=== PATIENT | female | born 2000 | race Caucasian/White ===

== ENCOUNTER → 2022-06-18 | Outpatient (CLI) | payer OTHER ==
[2022-06-18 12:14] LABS: HEMATOCRIT 37.1 % (36.0-47.0); HEMOGLOBIN 12.6 g/dl (12.0-15.5); MEAN CORPUSCULAR HEMOGLOBIN 31.3 pg (27.0-33.0); MEAN CORPUSCULAR VOLUME 92.3 fl (80.0-96.0); PLATELET COUNT, AUTOMATED 235 10^3/uL (150-450); RED BLOOD COUNT 4.02 10^6/uL (4.00-5.40); WHITE BLOOD COUNT 10.5 10^3/uL (4.0-10.0)
== END ==
LOC: M LAB 10:26
PROVIDERS: ATTEND Obstetrics & Gynecology
DX: Z34.02 Encounter for supervision of normal first pregnancy, second trimester (principal)

== ENCOUNTER → 2022-08-06 | Outpatient (REF) | payer OTHER | LOC: M LAB REF 12:08 | PROVIDERS: ATTEND Advanced Practice Midwife | DX: Z34.03 Encounter for supervision of normal first pregnancy, third trimester (principal) ==

== ENCOUNTER 2022-08-19 21:05 | Outpatient (CLI) | payer OTHER ==
[2022-08-19 21:25] VITALS: BP 129/78
== END 2022-08-19 22:30 | disposition home or self-care (01) ==
LOC: M LDO 21:05
PROVIDERS: ATTEND Advanced Practice Midwife
DX: O60.03 Preterm labor without delivery, third trimester (principal); O26.893 Other specified pregnancy related conditions, third trimester; R10.2 Pelvic and perineal pain; R25.2 Cramp and spasm; Z3A.36 36 weeks gestation of pregnancy
CPT/HCPCS: 59025; 76815; G0463

== ENCOUNTER → 2022-08-21 | Outpatient (REF) | payer OTHER | LOC: M LAB REF 16:16 | PROVIDERS: ATTEND Obstetrics & Gynecology | DX: Z34.03 Encounter for supervision of normal first pregnancy, third trimester (principal) ==

== ENCOUNTER → 2022-09-02 | Outpatient (CLI) | payer OTHER | LOC: M LABSMTC 11:33 | PROVIDERS: ATTEND Anesthesiology | DX: Z01.812 Encounter for preprocedural laboratory examination (principal); Z11.52 Encounter for screening for COVID-19 ==

== ENCOUNTER 2022-09-05 06:49 | Inpatient (IN) | payer OTHER ==
[~2022-09-05] VITALS: Ht 162.6 cm; Wt 75.1 kg
[2022-09-05] VITALS (9 sets, daily range): BP systolic 118–139; BP diastolic 62–82
[2022-09-05] MEDS ORDERED: LACTATED RINGER'S 1000 ML IV STA (07:04)
[2022-09-05] MEDS ORDERED: LR 1,000 ML IV SCH ×2 (07:05→11:50)
[2022-09-05] MEDS ORDERED: BICITRA 30ML SOLN UDC PO ONE (07:05)
[2022-09-05] MEDS ORDERED: ceFAZolin SOD 2 GM in IV 1 EA IV ONE (07:05)
[2022-09-05] MEDS ORDERED: OXYTOCIN DRIP 30 UNITS in IV 1 EA IV PRN ×4 (07:05)
[2022-09-05 07:49] LABS: HEMATOCRIT 35.6 % (36.0-47.0); HEMOGLOBIN 12.2 g/dl (12.0-15.5); MEAN CORPUSCULAR HEMOGLOBIN 30.9 pg (27.0-33.0); MEAN CORPUSCULAR HGB CONC 34.3 g/dl (32.0-36.5); MEAN CORPUSCULAR VOLUME 90.1 fl (80.0-96.0); PLATELET COUNT, AUTOMATED 228 10^3/uL (150-450); RED BLOOD COUNT 3.95 10^6/uL (4.00-5.40); WHITE BLOOD COUNT 11.7 10^3/uL (4.0-10.0)
[2022-09-05] MEDS ORDERED: KETOROLAC 60MG 2ML VIAL As Ordered ONE (08:36)
[2022-09-05] MEDS ORDERED: MORPHINE PRES-FREE INJ 10 MG/10 ML VIAL As Ordered ONE (08:36)
[2022-09-05] MEDS ORDERED: OXYTOCIN INJ 10 UNITS/ML VIAL (J2590) As Ordered ONE (08:46)
[2022-09-05] MEDS: PRENATAL VITAMINS CHEWABLE TABLET PO SCH (09:00)
[2022-09-05] MEDS ORDERED: MOM 30ML SUSPENSION UDC PO PRN (10:30)
[2022-09-05] MEDS ORDERED: RHOGAM 300 MCG (1500 IU) INJ (J2790) IM SCH (10:30)
[2022-09-05] MEDS ORDERED: ONDANSETRON 4MG 2ML VIAL As Ordered ONE (10:54)
[2022-09-05] MEDS ORDERED: dexameTHASONE 4 MG/ML 1ML VIAL (J1100 PER 1MG) As Ordered ONE (10:54)
[2022-09-05] MEDS ORDERED: PHENYLephrine 500MCG 5ML (100MCG/ML) SYRINGE As Ordered ONE (11:02)
[2022-09-05 11:09] LABS: CORD GAS ABE V -2.5; CORD GAS HCO3 V 22.7 MEQ/L; CORD GAS O2 SAT V 71.5 %; CORD GAS PCO2 V 40.6 mmHg; CORD GAS PH V 7.365 UNITS; CORD GAS PO2 V 30.3 mmHg; CORD GAS SBC V 21.8 MEQ/L; CORD GAS TCO2 V 23.9 MEQ/L
[2022-09-05 11:10] LABS: CORD GAS ABE A -1.1; CORD GAS HCO3 A 26.2 MEQ/L; CORD GAS O2 SAT A 36.1 %; CORD GAS PCO2 A 53.7 mmHg; CORD GAS PH A 7.306 UNITS; CORD GAS PO2 A 16.7 mmHg; CORD GAS SBC A 22.1 MEQ/L; CORD GAS TCO2 A 27.8 MEQ/L
[2022-09-05] MEDS ORDERED: ACETAMINOPHEN 1000MG 100ML IV BAG As Ordered ONE (11:10)
[2022-09-05] MEDS ORDERED: ONDANSETRON 4MG 2ML VIAL IV PRN (11:50)
[2022-09-05] MEDS ORDERED: fentaNYL 100 MCG/2 ML INJECTION IV PRN (11:50)
[2022-09-05] MEDS ORDERED: **NOTE PATIENT COMMENT** MISC XX SCH ×2 (11:50)
[2022-09-05] MEDS ORDERED: METOCLOPRAMIDE INJ 10MG/2ML VIAL (J2765 PER 1) IV PRN ×2 (11:50)
[2022-09-05] MEDS ORDERED: SLF 3 ML SYR IV SCH ×2 (11:50)
[2022-09-05] MEDS ORDERED: NALOXONE INJ 0.4MG/1ML VIAL (J2310 PER 1MG) IV PRN ×4 (11:50)
[2022-09-05] MEDS ORDERED: diphenhydrAMINE 50MG/ML VIAL IV PRN (11:50)
[2022-09-05] MEDS ORDERED: OXYTOCIN 30 UNITS IN 0.9% NaCl 500ML IV BAG (J2590) As Ordered ONE (12:08)
[2022-09-05] MEDS ORDERED: diphenhydrAMINE 50MG/ML VIAL As Ordered ONE (12:09)
[2022-09-05] MEDS ORDERED: OXYTOCIN DRIP 30 UNITS in IV 1 EA IV ONE (12:10)
[2022-09-05] MEDS: diphenhydrAMINE 50MG/ML VIAL IV PRN ×2 (12:11→16:30)
[2022-09-05] MEDS: KETOROLAC 30 MG/ML 1ML VIAL IV SCH ×2 (16:56→22:32)
[2022-09-05] MEDS: SLF 3 ML SYR IV SCH (19:50)
[2022-09-05] MEDS: DOCUSATE SODIUM 100MG CAPSULE PO SCH (20:00)
[2022-09-06 01:57] VITALS: BP 115/58
[2022-09-06] MEDS: SLF 3 ML SYR IV SCH ×2 (05:15→11:50)
[2022-09-06] MEDS: KETOROLAC 30 MG/ML 1ML VIAL IV SCH (05:15)
[2022-09-06 06:00] VITALS: BP 118/75
[2022-09-06 07:33] LABS: HEMATOCRIT 31.4 % (36.0-47.0); HEMOGLOBIN 10.6 g/dl (12.0-15.5); MEAN CORPUSCULAR HEMOGLOBIN 31.3 pg (27.0-33.0); MEAN CORPUSCULAR HGB CONC 33.8 g/dl (32.0-36.5); MEAN CORPUSCULAR VOLUME 92.6 fl (80.0-96.0); PLATELET COUNT, AUTOMATED 229 10^3/uL (150-450); RED BLOOD COUNT 3.39 10^6/uL (4.00-5.40); WHITE BLOOD COUNT 18.5 10^3/uL (4.0-10.0)
[2022-09-06] MEDS: PRENATAL VITAMINS CHEWABLE TABLET PO SCH (08:58)
[2022-09-06] MEDS: DOCUSATE SODIUM 100MG CAPSULE PO SCH ×2 (08:58→20:22)
[2022-09-06 10:00] VITALS: BP 120/66
[2022-09-06] MEDS: SIMETHICONE 80MG CHEW TAB PO PRN ×2 (10:12→17:23)
[2022-09-06] MEDS: PERCOCET 5MG/325MG TAB PO PRN ×2 (10:13→17:24)
[2022-09-06] MEDS: IBUPROFEN 800 MG TAB PO SCH ×2 (12:46→20:23)
[2022-09-06 14:00] VITALS: BP 107/53
[2022-09-06 18:00] VITALS: BP 126/87
[2022-09-06 22:05] VITALS: BP 117/71
[2022-09-07] MEDS: SIMETHICONE 80MG CHEW TAB PO PRN ×3 (01:07→12:18)
[2022-09-07] MEDS: PERCOCET 5MG/325MG TAB PO PRN ×3 (01:07→10:30)
[2022-09-07 02:00] VITALS: BP 128/82
[2022-09-07] MEDS: IBUPROFEN 800 MG TAB PO SCH ×2 (05:09→12:18)
[2022-09-07 06:00] VITALS: BP 130/76
[2022-09-07] MEDS: DOCUSATE SODIUM 100MG CAPSULE PO SCH (08:06)
[2022-09-07] MEDS: PRENATAL VITAMINS CHEWABLE TABLET PO SCH (08:06)
[2022-09-07] MEDS ORDERED: MEASLES,MUMPS,RUBELLA VACCINE INJ (MMR-II) (90707) SC.IMMUN ONE (09:00)
[2022-09-07] MEDS ORDERED: SIME180C25 PO ×2 (11:35→14:29)
[2022-09-07] MEDS ORDERED: OXYC1TAB23 PO ×2 (12:03→14:28)
== END 2022-09-07 13:36 | disposition home or self-care (01) | DRG 773 ==
LOC: M LDI 06:49 → M OBS 12:47
PROVIDERS: ADMIT Obstetrics & Gynecology; ATTEND Obstetrics & Gynecology
PROC: 10D00Z1 Extraction of Products of Conception, Low, Open Approach (ICD-10-PCS; principal; 2022-09-05 09:30)
DX: O80 Encounter for full-term uncomplicated delivery (principal); Z3A.38 38 weeks gestation of pregnancy; Z37.0 Single live birth

== ENCOUNTER → 2023-02-25 | Outpatient (REF) ==
[~2023-02-25] MED LIST: OXYC1TAB23 PO; SIME180C25 PO
== END ==
LOC: M EMP 10:57
PROVIDERS: ATTEND Family Medicine
DX: Z20.822 Contact with and (suspected) exposure to COVID-19 (principal)

== ENCOUNTER → 2024-06-17 | Outpatient (CLI) | payer OTHER ==
[2024-06-17 11:42] LABS: HEMATOCRIT 35.9 % (36.0-47.0); MEAN CORPUSCULAR HGB CONC 33.4 g/dl (32.0-36.5); MEAN CORPUSCULAR VOLUME 92.8 fl (80.0-96.0); PLATELET COUNT, AUTOMATED 240 10^3/uL (150-450); RED BLOOD COUNT 3.87 10^6/uL (4.00-5.40); WHITE BLOOD COUNT 10.4 10^3/uL (4.0-10.0)
== END ==
LOC: M LAB 09:46
PROVIDERS: ATTEND Obstetrics & Gynecology
DX: Z34.82 Encounter for supervision of other normal pregnancy, second trimester (principal)

== ENCOUNTER → 2024-08-03 | Outpatient (REF) | payer OTHER ==
[~2024-08-03] MED LIST changes: +ONDA-83 PO; -SIME180C25 PO; +SIME1CAP4 PO
== END ==
LOC: M LAB REF 13:07
PROVIDERS: ATTEND Obstetrics & Gynecology
DX: Z34.83 Encounter for supervision of other normal pregnancy, third trimester (principal); Z3A.00 Weeks of gestation of pregnancy not specified

== ENCOUNTER 2024-08-11 00:34 | Outpatient (CLI) | payer OTHER ==
[~2024-08-11] VITALS: Ht 162.6 cm; Wt 74.2 kg
[2024-08-11 00:47] VITALS: BP 125/74
[2024-08-11] MEDS ORDERED: PRENTAB9 PO (00:49)
[2024-08-11] MEDS ORDERED: IRON27TA2 PO (00:49)
[2024-08-11] MEDS ORDERED: HOME MED LIST COMPLETE! XX SCH (00:50)
[2024-08-11 04:14] LABS: HEMATOCRIT 32.6 % (36.0-47.0); HEMOGLOBIN 11.1 g/dl (12.0-15.5); MEAN CORPUSCULAR HEMOGLOBIN 31.2 pg (27.0-33.0); MEAN CORPUSCULAR VOLUME 91.6 fl (80.0-96.0); PLATELET COUNT, AUTOMATED 204 10^3/uL (150-450); RED BLOOD COUNT 3.56 10^6/uL (4.00-5.40); WHITE BLOOD COUNT 11.5 10^3/uL (4.0-10.0)
[2024-08-11 04:26] LABS: INR 1.02; PARTIAL THROMBOPLASTIN TIME 29.6 SECONDS (24.8-34.2); PROTHROMBIN TIME 13.1 SECONDS (12.5-14.5)
== END 2024-08-11 05:11 | disposition home or self-care (01) ==
LOC: M LDO 00:34
PROVIDERS: ATTEND Obstetrics & Gynecology
DX: O47.1 False labor at or after 37 completed weeks of gestation (principal); Z3A.37 37 weeks gestation of pregnancy
CPT/HCPCS: 36415; 59025; 85027; 85384; 85610; 85730; 86850; 86900; 86901; G0463

== ENCOUNTER 2024-08-27 13:10 | Emergency (ER) | payer OTHER ==
[~2024-08-27] VITALS: Ht 162.6 cm; Wt 69.4 kg
[~2024-08-27 13:10] MED LIST changes: +COLA100C5 PO; +FLUC10TA PO; +IBUP80TA PO; +IRON27TA2 PO; +PRENTAB9 PO
[2024-08-27] MEDS ORDERED: ACET-907 PO (13:21)
[2024-08-27 14:02] LABS: BASO # 0.1 10^3/uL (0.0-0.2); BASO % 0.5 % (0.0-1.0); EOS # 0.2 10^3/uL (0.0-0.5); EOS % 1.7 % (0.0-3.0); HEMATOCRIT 39.4 % (36.0-47.0); LYMPH # 1.3 10^3/uL (1.5-5.0); LYMPH % 10.3 % (24.0-44.0); MEAN CORPUSCULAR HEMOGLOBIN 29.9 pg (27.0-33.0); MEAN CORPUSCULAR VOLUME 90.6 fl (80.0-96.0); MONO # 0.6 10^3/uL (0.0-0.8); NEUTROPHILS # 9.9 10^3/uL (1.5-8.5); NEUTROPHILS % 81.9 % (36.0-66.0); PLATELET COUNT, AUTOMATED 421 10^3/uL (150-450); RED BLOOD COUNT 4.35 10^6/uL (4.00-5.40); WHITE BLOOD COUNT 12.1 10^3/uL (4.0-10.0)
[2024-08-27 14:30] LABS: ALBUMIN 3.5 G/DL (3.2-5.2); ALKALINE PHOSPHATASE 111 U/L (35-104); ALT/SGPT 18 U/L (7.0-40); AST/SGOT 9 U/L (<34); BILIRUBIN,TOTAL 0.4 MG/DL (0.3-1.2); BLOOD UREA NITROGEN 20 MG/DL (9-23); CALCIUM LEVEL 10.2 MG/DL (8.5-10.1); CARBON DIOXIDE LEVEL 24 MMOL/L (20-31); CHLORIDE LEVEL 111 MMOL/L (98-107); GLOMERULAR FILTRATION RATE > 60.0 (>60); GLUCOSE, FASTING 80 MG/DL (60-100); POTASSIUM SERUM 4.5 MMOL/L (3.5-5.1); SODIUM LEVEL 142 MMOL/L (136-145); TOTAL PROTEIN 7.4 G/DL (5.7-8.2)
[2024-08-27 15:45] VITALS: BP 124/75; O2SAT 96
[2024-08-27] MEDS ORDERED: GASTROGRAFIN SOLUTION 30ML PO SCH (16:00)
[2024-08-27 16:06] VITALS: TEMP 99.6
[2024-08-27] MEDS: READI-CAT 2 PO SCH (16:18)
== END 2024-08-27 17:55 | disposition home or self-care (01) ==
LOC: M ED 13:10
DX: O90.89 Other complications of the puerperium, not elsewhere classified (principal); L76.34 Postprocedural seroma of skin and subcutaneous tissue following other procedure; R50.9 Fever, unspecified; Z88.3 Allergy status to other anti-infective agents; Z91.013 Allergy to seafood

== ENCOUNTER → 2025-10-10 | Outpatient (REF) ==
[~2025-10-10] MED LIST changes: +ACET-907 PO
[2025-10-10 12:45] LABS: SOFIA COVID ANTIGEN NEGATIVE (NEGATIVE)
== END ==
LOC: M EMP 07:45
PROVIDERS: ATTEND Family Medicine
DX: Z01.89 Encounter for other specified special examinations (principal)